=== PATIENT | male | born 1955 | race Two or more races ===

== ENCOUNTER 2018-07-01 08:10 | Emergency (ER) | payer OTHER ==
[~2018-07-01] VITALS: Ht 172.7 cm; Wt 66.2 kg
[2018-07-01] MEDS ORDERED: VALACYCLOVIR500 MG (08:22)
[2018-07-01] MEDS ORDERED: ZOCOR20 MG (08:22)
== END 2018-07-01 08:57 | disposition home or self-care (01) ==
LOC: ER 08:10
DX: K80.80 Other cholelithiasis without obstruction (principal)

== ENCOUNTER 2018-07-01 11:17 | Outpatient (CLI) | payer OTHER ==
[~2018-07-01 11:17] MED LIST: VALACYCLOVIR500 MG; ZOCOR20 MG
== END 2018-07-01 13:27 | disposition home or self-care (01) ==
LOC: SONOGRAMA 11:17
DX: K80.20 Calculus of gallbladder without cholecystitis without obstruction (principal)

== ENCOUNTER 2019-06-18 18:13 | Emergency (ER) | payer OTHER ==
[~2019-06-18] VITALS: Ht 172.7 cm; Wt 67.1 kg
== END 2019-06-18 21:31 | disposition home or self-care (01) ==
LOC: ER 18:13
DX: K80.20 Calculus of gallbladder without cholecystitis without obstruction (principal); K82.8 Other specified diseases of gallbladder